=== PATIENT | female | born 2005 | race Caucasian/White ===

== ENCOUNTER 2024-05-08 01:37 | Emergency (ER) | payer OTHER ==
[~2024-05-08] VITALS: Ht 154.9 cm; Wt 87.1 kg
[2024-05-08 01:40] VITALS: PULSE 69; RESP 16; TEMP 98.3
[2024-05-08] MEDS: TETANUS/DIPHTHERIA TOX ADULT 0.5 ML SYR IM ONE (01:56)
[2024-05-08] MEDS: BUPIVACAINE HCL 0.25% 10ML MPF VIAL INJ ONE (01:57)
[2024-05-08] MEDS: BACITRACIN ZINC 0.9GM TP ONE (02:54)
[2024-05-08 03:01] VITALS: BP 119/79; PULSE 71; RESP 18; TEMP 98.1; O2SAT 98
== END 2024-05-08 03:00 | disposition home or self-care (01) ==
LOC: ER 01:45
DX: S61.213A Laceration without foreign body of left middle finger without damage to nail, initial encounter (principal); W25.XXXA Contact with sharp glass, initial encounter; Y92.89 Other specified places as the place of occurrence of the external cause
CPT/HCPCS: 90714; 99283